=== PATIENT | male | born 1950 | race Caucasian/White ===

== ENCOUNTER 2018-06-06 19:39 | Emergency (ER) | payer MEDICAID, MEDICARE ==
[~2018-06-06] VITALS: Ht 180.3 cm; Wt 88.6 kg
[2018-06-06 20:54] LABS: GLUCOSE,POINT OF CARE 131 MG/DL (70-110)
[2018-06-06] MEDS ORDERED: BACITRACIN 0.9 GM PACKET OINTMENT TP ONE (21:30)
[2018-06-06] MEDS ORDERED: TraMADol HCL 50 MG TABLET PO ONE (21:30)
[2018-06-06 22:19] LABS: GLUCOSE,POINT OF CARE 142 MG/DL (70-110)
[2018-06-06 23:14] VITALS: BP 131/76
== END 2018-06-07 00:08 | disposition home or self-care (01) ==
LOC: EMS 19:40
DX: G89.29 Other chronic pain (principal); M79.672 Pain in left foot; I11.0 Hypertensive heart disease with heart failure; I50.9 Heart failure, unspecified; E78.00 Pure hypercholesterolemia, unspecified; E11.9 Type 2 diabetes mellitus without complications; I25.2 Old myocardial infarction; F17.210 Nicotine dependence, cigarettes, uncomplicated
CPT/HCPCS: 99283